=== PATIENT | female | born 1945 | race Caucasian/White ===

== ENCOUNTER → 2016-09-02 | Outpatient (CLI) | payer MEDICARE ==
[~2016-09-02] MED LIST: ATOR40TA16 PO; CALC1TAB87 PO; CHOL20005 PO; COEN400C2 PO; KRIL1CAP10 PO; MAGN400T2 PO; MULT1TAB PO; OMEP40CA2 PO; OSTETAB2 PO; TRAM50TA PO; [UNRECOGNIZED DRUG - CODE] PO
[2016-09-02 09:01] LABS: AUTOMATED NEUTROPHIL # 4.9 TH/MM3 (1.8-7.7); BASOPHIL % 0.5 % (0.0-2.0); EOSINOPHIL # 0.3 TH/MM3 (0-0.4); EOSINOPHIL % 3.6 % (0.0-4.0); HEMO FLAGS DIFF FINAL; LYMPH % 29.5 % (9.0-44.0); LYMPHOCYTE # 2.5 TH/MM3 (1.0-4.8); MEAN CELL VOLUME 92.6 FL (80.0-100.0); MEAN CORPUSCULAR HEMOGLOBIN 30.1 PG (27.0-34.0); MEAN CORPUSCULAR HGB CONC 32.5 % (32.0-36.0); MONO % 8.7 % (0.0-8.0); NEUT % 57.7 % (16.0-70.0); PLATELET COUNT 252 TH/MM3 (150-450); RED BLOOD COUNT 4.86 MIL/MM3 (4.00-5.30); RED CELL DISTRIBUTION WIDTH 13.5 % (11.6-17.2); WHITE BLOOD COUNT 8.5 TH/MM3 (4.0-11.0)
--- NOTE | 2016-09-02 09:08 | RADRPT ---
EXAM DATE/TIME: 09/02/2016 08:52 [place] COMPARISON: No previous studies available for comparison. INDICATIONS : Evaluate for pneumonia, pneumothorax, or communicable disease. Pre op for surgery on 09/09/16. MEDICAL HISTORY : None. SURGICAL HISTORY : None. ENCOUNTER: Initial ACUITY: 1 day PAIN SCORE: 0/10 LOCATION: Bilateral chest FINDINGS: PA and lateral views of the chest demonstrate the lungs to be symmetrically aerated without evidence of mass, infiltrate or effusion. The cardiomediastinal contours are unremarkable. Osseous structure s are intact. CONCLUSION: No acute disease. Richy Yoo MD FACR on September 02, 2016 at 9:05 Board Certified Radiologist. This report was verified electronically.
[2016-09-02 09:09] LABS: APTT (PATIENT) 24.5 SEC (24.3-30.1); INTERNATIONAL NORMALIZED RATIO 0.9 RATIO; PROTHROMBIN TIME - PATIENT 10.1 SEC (9.8-11.6)
[2016-09-02 09:45] LABS: ANION GAP 5 MEQ/L (5-15); BICARBONATE 29.4 MEQ/L (21.0-32.0); BLOOD UREA NITROGEN 11 MG/DL (7-18); CHLORIDE 106 MEQ/L (98-107); GLOMERULAR FILTRATION RATE 89 ML/MIN (>89); GLUCOSE,FASTING 104 MG/DL (74-99); POTASSIUM 4.9 MEQ/L (3.5-5.1); SODIUM (NA) 140 MEQ/L (136-145)
[2016-09-02 09:46] LABS: ALT (GPT) 23 U/L (10-53); AST (GOT) 21 U/L (15-37)
[2016-09-02 09:49] LABS: ALKALINE PHOSPHATASE 100 U/L (45-117); TOTAL BILIRUBIN ADULT 0.5 MG/DL (0.2-1.0)
[2016-09-02 09:53] LABS: BACTERIA, URINE OCC /hpf; BLOOD, URINE NEG (NEG); COMMENT (UR) CULT NOT INDICATED; CULTURE IF INDICATED CULT NOT INDICATED; GLUCOSE,URINE NEG (NEG); KETONE, URINE NEG (NEG); MUCUS URINE FEW /lpf (OCC); NITRITE,URINE NEG (NEG); SQUAMOUS EPITHELIAL CELL URINE <1 /hpf (0-5); URINE COLOR LIGHT-YELLOW (YELLW/STRAW)
== END ==
LOC: CPRE 07:53
PROVIDERS: ATTEND Colon & Rectal Surgery
DX: Z01.810 Encounter for preprocedural cardiovascular examination (principal); Z01.811 Encounter for preprocedural respiratory examination; Z01.812 Encounter for preprocedural laboratory examination; C20 Malignant neoplasm of rectum
CPT/HCPCS: 36415; 71020; 80053; 81001; 82378; 85025; 85610; 85730

== ENCOUNTER → 2016-09-09 | Day surgery (SDC) | payer MEDICARE ==
[~2016-09-09] VITALS: Ht 167.6 cm; Wt 66.5 kg
[~2016-09-09] MED LIST changes: +*morphine SULFATE 8 MG/ML PERIprocedure ONLY ONE; +ACETAMINOPHEN 1000 MG/100 ML VIAL IV ONE; +ACETAMINOPHEN/HYDROcodone 325 MG/5 MG TAB PO PRN; +BUPIVACAINE LIPOSOME PF 1.3% 20 ML VIAL ONE; +BUPIVACAINE/EPINEPHRINE 0.5% 50 ML VIAL ONE; +CHLORHEXIDINE GLUCONATE 2 % 1 PACK (2 CLOTHS) TOPICAL PRN; +DEXAMETHASONE SOD PHOS 4 MG/ML VIAL ONE; +DO NOT ADM ANY ANTICOAGULANT DRUGS PRN; +INSULIN HUMAN REGULAR 1,000 UNITS/10 ML VIAL SQ PRN; +KETOROLAC TROMETHAMINE IM ONE; +KETOROLAC TROMETHAMINE IV PUSH PRN; +LACTATED RINGER'S 1000 ML IV PRN; +METOPROLOL TARTRATE 25 MG TAB PO PRN; +MIDAZOLAM HCL 2 MG/2 ML VIAL ONE; +MORPHINE SULFATE 8 MG/ML INJ IV PUSH PRN; +ONDANSETRON HCL 4 MG/2 ML VIAL IV PRN; +ONDANSETRON HCL 4 MG/2 ML VIAL IV PUSH ONE; +POVIDONE IODINE 5% (ANTISEPSIS KIT) 4 APPLICATIONS EACH NARE PRN; +PROPOFOL 200 MG/20 ML AMP IV ONE; +SODIUM CHLORID 0.9% 500 ML IV PRN; +ceFAZolin 2 GM PREMIX 50 ML ONE; +ePHEDrine/NS 25 MG/5 ML SYR IV ONE; +fentaNYL CITRATE 250 MCG/5 ML AMP ONE; +metroNIDAZOLE 500 MG INJ 100 ML IV ONE
[2016-09-09 11:37] VITALS: BP 121/80; PULSE 94; RESP 16; TEMP 99; O2SAT 99
[2016-09-09 16:30] VITALS: BP 147/88; PULSE 61; RESP 16; TEMP 97.6; O2SAT 95
--- NOTE | 2016-09-10 09:42 | MP ---
cc: SYLVIA BERMUDEZ M.D. [facility] DATE OF SURGERY 09/09/2016 PREOPERATIVE DIAGNOSIS Rectal cancer POSTOPERATIVE DIAGNOSIS Rectal cancer PROCEDURE Transanal excision of rectal cancer. SURGEON Sylvia Bermudez. ANESTHESIA General per ET tube ESTIMATED BLOOD LOSS Less than 50 cc OPERATIVE INDICATIONS The patient is a 71-year-old female who on recent colonoscopy was noted to have a small nodule in the rectum, with biopsies positive for rectal cancer. All other tests have been negative. OPERATIVE COURSE The patient was brought to the operating room and placed in the supine position. After induction of general anesthesia, the patient was placed in candy cane stirrups and all bony prominences carefully padded. The skin of the perianal area was then prepped and draped in the usual sterile fashion. A Hernandez bivalve was then placed in the anus and the tumor was clearly visualized. However, the anterior rectum was falling in a little bit so I chose to change to a bullet type anoscope. The subcutaneous tissue underneath the 1 to 2 cm rectal nodule was then infiltrated with 1/2% lidocaine with 1:100,000 epinephrine. The cancer was then excised with a 2 cm margin circumferentially and as far deep as I can go through the muscle until I saw perianal fat. The distal margin was marked with a Prolene suture and the left margin was marked with a Vicryl suture. After evaluation after I felt the left proximal margin seemed a little narrow, so I did take an additional rim of tissue in that area. Hemostasis was obtained with electrocautery and the defect was then closed transversely in an interrupted [id number] fashion using 3-0 Vicryl. The anastomosis was intact and pink with no sign of any significant bleeding noted. An ischiorectal block was performed with Exparel. In addition, Exparel was placed circumferentially around the anus. All sponge, needle and sponge counts were correct and the patient was returned to the post anesthesia care in stable condition. MD KEKE Hansen/DONTAE /3:01 PM /9:37 AM [facility]
== END | disposition home or self-care (01) ==
LOC: EDUNIT# 09-02 13:00 → HSDC 10:55
PROVIDERS: ATTEND Colon & Rectal Surgery
DX: C20 Malignant neoplasm of rectum (principal); I10 Essential (primary) hypertension; K21.9 Gastro-esophageal reflux disease without esophagitis; F17.200 Nicotine dependence, unspecified, uncomplicated
CPT/HCPCS: 00902; 45171; 86850; 86900; 86901; 88305; C9290; J0131; J0690; J1100; J2250; J2270; J2405; J3010; J7120